=== PATIENT | male | born 2000 | race Caucasian/White ===

== ENCOUNTER 2023-06-23 18:58 | Emergency (ER) | payer OTHER, SELFPAY ==
[2023-06-23] MEDS ORDERED: methylPREDNISolone Sod Succ/PF 125 MG/2 ML VIAL ONE (19:16)
[2023-06-23] MEDS ORDERED: diphenhydrAMINE 50 MG/ML VIAL ONE (19:16)
== END 2023-06-23 20:15 ==
LOC: BURERS 18:58
DX: T78.40XA Allergy, unspecified, initial encounter (principal); F17.210 Nicotine dependence, cigarettes, uncomplicated
CPT/HCPCS: 96374; 96375; J1200; J2930